=== PATIENT | male | born 2000 | race Caucasian/White ===

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

== ENCOUNTER 2022-09-18 13:11 | Emergency (ER) | payer MEDICAID, SELFPAY ==
[2022-09-18 13:12] VITALS: BP 142/78; PULSE 106; RESP 15; TEMP 37.1; O2SAT 98; BMI 23.8
--- NOTE | 2022-09-18 13:31 | EX.ED.GUMALE ---
HPI History of Present Illness Chief Complaint: Male Pain/Injury Informant: patient Pain Onset: Days (3) Context: Gradual Onset Timing: Continuous Worsened by: Walking Relieved by: Nothing Narrative Narrative: Patient presents with bilateral testicular pain that has been getting worse over the past 3 days. Patient states it is gradually getting worse. Patient describes it as a pressure. Patient states it is worse whenever he walks. Patient states it is worse whenever he touches his testicles. Patient denies any dysuria. Patient states he had some discoloration to his semen recently. Patient denies any fevers or chills. Patient denies any nausea or vomiting. Patient has not had any sexual intercourse recently. PFSH PFSH Medical History no medical history no medical history Home Medications ciprofloxacin HCl 500 mg tablet 500 mg PO BID #14 TABLETS 09/18/22 [Rx Last Taken Unknown] Allergy/AdvReac Type Severity Reaction Status Date / Time No Known Allergies Allergy Verified 09/18/22 13:12 Surgical History no surgical history no surgical history Social History (Updated 09/18/22 @ 13:[address] Shashank Brannon, DO) Smoking Status: Never smoker substance use type: marijuana ROS ROS ED Constitutional Constitutional ED: Denies chills or fever(s) Eyes Eyes: Denies blurry vision or change in vision ENT ENT ED: Reports rhinorrhea; Denies sore throat Cardiovascular Cardiovascular: Denies chest pain or palpitations Respiratory/Chest Respiratory/Chest: Denies cough or dyspnea Gastrointestinal Gastrointestinal: Denies nausea or vomiting Genitourinary Genitourinary ED: Denies dysuria or hematuria Musculoskeletal Musculoskeletal: Denies back pain or neck pain Integumentary Denies abscess or rash Neurologic Neurologic: Denies headache(s) or weakness Allergic/Immunologic Allergic/Immunologic ED: Denies mouth swelling or urticaria EXAM Physical Exam Const Vital Signs: 09/18/22 13:12 Temperature 98.8 F Temperature Source Temporal Pulse Rate 106 H Respiratory Rate 15 Blood Pressure 142/78 H Blood Pressure Mean 99 Pulse Ox 98 Oxygen Delivery Method Room Air Positive well nourished and well developed General Appearance ED: well developed HEENT Reports moist mucous membranes Neck supple and no JVD Resp normal respiratory effort and clear to auscultation bilaterally Cardio regular rate, regular rhythm and no murmurs GI normal to inspection, nondistended, normoactive bowel sounds and non-tender Palpation: soft Narrative: There is mild tenderness over the testicles bilaterally. There is some tenderness over the right epididymis distally. There is no erythema. There is a vertical lie bilaterally. The epididymis is posterior. There is no inguinal tenderness. There are no hernias palpated. There are no external penile lesions noted. There is no urethral discharge or drainage. Groin / Perineum Exam: Negative for edema Extremity normal to inspection General Extremety ED: Negative for edema or tenderness General Extremity: Negative for edema Neuro oriented x3, CN's II-XII intact bilaterally and no sensory deficits noted Sensorium / Orientation: alert Motor Exam: strength 5/5 throughout Psych mental status grossly normal Skin no rashes or lesions noted MDM MDM MDM Narrative Medical decision making narrative: CBC was within normal limits. Basic metabolic profile was essentially within normal limits. Urinalysis shows a leukocyte esterase of 500 with positive nitrites. There were 10-25 white blood cells and 1+ bacteria. Urine culture was ordered. Patient was given a dose of Cipro here. Scrotal ultrasound was obtained. There is no evidence of testicular torsion. There are no masses noted. This was interpreted by the radiologist and reviewed by myself. Patient was advised of his findings. Patient was given a prescription for Cipro. Patient was instructed to follow-up with his primary care physician in 5 to 7 days. Patient understood and was agreeable with the plan. All questions were answered. Lab Data Attestation: I reviewed the patient's lab results. Labs: Laboratory Results - last 24 hr 09/18/22 09/18/22 09/18/22 13:45 13:45 14:10 WBC 6.1 RBC 5.06 Hgb 15.7 Hct 44.9 MCV 88.7 MCH 31.0 MCHC 35.0 RDW Std Deviation 39.9 RDW Coeff of [place]uly 12.3 Plt Count 189 MPV 9.9 Immature Gran % (Auto) 0.300 Neut % (Auto) 72.3 H Lymph % (Auto) 18.6 L [place] % (Auto) 8.0 Eos % (Auto) 0.5 Baso % (Auto) 0.3 Absolute Neuts (auto) 4.4 Absolute Lymphs (auto) 1.14 Nucleated RBC % 0 Sodium 140 Potassium 3.9 Chloride 105 Carbon Dioxide 32.0 Anion Gap 3 L BUN 16 Creatinine 0.93 Estim Creat Clear Calc 126.70 Est GFR (MDRD) Af Amer 132 Est GFR (MDRD) Non-Af 109 BUN/Creatinine Ratio 17.2 Glucose 107 H Calcium 9.3 Urine Color Yellow Urine Clarity Clear Urine pH 7.0 Ur Specific [place] 1.015 Urine Protein 30 H Urine Glucose (UA) Normal Urine Ketones Negative Urine Occult Blood Negative Urine Nitrite Positive H Urine Bilirubin Negative Urine Urobilinogen Normal Ur Leukocyte Esterase 500 H Urine RBC 0 SEEN Urine WBC 10-25 SEEN Ur Squamous Epith Cells 0 SEEN Urine Bacteria 1+ Urine Mucus 1+ Radiography Diagnostic Testing: Clinical Impression(s) from Imaging Studies Testicular Ultrasound 09/18/22 13:36 IMPRESSION: Normal bilateral testicles. Electronically Signed: Cecilio Corona MD at 16:47 EST , Discharge Plan Triage Chief Complaint: Male Pain/Injury ED Provider: Shashank Brannon Dx/Rx/DC Orders Clinical Impression: Urinary tract infection Instructions: ED Bladder Infection, Male (Adult) Prescriptions: New ciprofloxacin HCl [ciprofloxacin HCl] 500 mg tablet 500 mg PO BID Qty: 14 0RF Primary Care Provider: Concha Andrew Referrals: Concha Andrew MD [Primary Care Provider] - 3-5 Days Disposition Disposition: Home, Self Care
--- NOTE | 2022-09-18 13:36 | US_ITS ---
STUDY: SCROTUM ULTRASOUND REASON FOR EXAM: Male, 22 years old. Pain, mass TECHNIQUE: Ultrasound evaluation of the scrotum was performed with color Doppler and static varela-scale imaging. COMPARISON: None. FINDINGS: RIGHT TESTICLE INTRATESTICULAR: There is a normal size of the right testicle. The right testicle measures 4.2 x 2.7 x 1.9 cm. There is a homogenous echotexture. There is normal arterial and normal venous vascularity. There is no demonstrated right testicular mass or cyst. EXTRATESTICULAR: The epididymis is normal in size. The epididymis head measures 0.6 x 1.2 x 0.9 cm. There is normal vascularity of the epididymis. There is no demonstrated epididymal cystic structure. There is a small hydrocele. There is no demonstrated varicocele. There is no demonstrated extratesticular mass or cyst. LEFT TESTICLE INTRATESTICULAR: There is a normal size of the left testicle. The left testicle measures 3.8 x 2.3 x 2.1 cm. There is a homogenous echotexture. There is normal arterial and normal venous vascularity. There is no demonstrated left testicular mass or cyst. EXTRATESTICULAR: The epididymis is normal in size. The epididymis head measures 0.9 x 1.2 x 1.0 cm. There is normal vascularity of the epididymis. There is a well-defined cystic structure within the epididymis, without internal echoes, consistent with an epididymal cyst. There is a small hydrocele. There is no demonstrated varicocele. There is no demonstrated extratesticular mass or cyst. US/Testicular with Arterial Flow IMPRESSION: Normal bilateral testicles. Electronically Signed: Cecilio Corona MD at 16:47 EST ,
[2022-09-18 13:51] LABS: Absolute Lymphocyte Count 1.14 X10^3/uL (0.83-4.51); Absolute Neutrophil Count 4.4 X10^3/uL (2.0-7.7); Basophil# 0.02 X10^3/uL; Basophil% 0.3 % (0-1); Eosinophil# 0.03 X10^3/uL; Eosinophils% 0.5 % (0-5); Hematocrit 44.9 % (40-54); Hemoglobin 15.7 g/dL (13.0-16.5); Lymphocyte # 1.14 X10^3/ul (0.83-4.51); Lymphocyte % 18.6 % (19-41); Mean Corpuscular Volume 88.7 fL (80-94); Mean Platelet Vol. 9.9 fl (6.2-12.0); Monocyte# 0.49 X10^3/uL; NRBC Flagged by Analyzer 0 % (0-5); Neutrophil # 4.44 X10^3/uL (2.7-7.7); Neutrophil % 72.3 % (47-70); Platelet Count 189 K/mm3 (150-450); RBC Distribution Width CV 12.3 % (11.6-14.6); RBC Distribution Width SD 39.9 fl (35.1-43.9); Red Blood Count 5.06 M/mm3 (4.6-6.2); White Blood Count 6.1 K/mm3 (4.4-11.0)
[2022-09-18 14:04] LABS: Anion Gap 3 (5-15); BUN 16 mg/dL (7-18); BUN/Creat Ratio 17.2 RATIO (10-20); Calcium,Total 9.3 mg/dL (8.5-10.1); Chloride 105 mmol/L (98-107); Creatinine, Serum 0.93 mg/dL (0.70-1.30); EST Glomerular Filtration Rate 109 mL/min (>60); Est Glom Filt Rate - Afr Amer 132 mL/min (>60); Glucose 107 mg/dL (74-106); Potassium 3.9 mmol/L (3.5-5.1); Sodium Level 140 mmol/L (136-145)
[2022-09-18 14:17] LABS: Red Blood Cells-Urine 0 SEEN /hpf (0-5); Squamous Epithelial Cells - UA 0 SEEN /hpf (0-5)
[2022-09-18 14:51] LABS: Color, Urine Yellow (Yellow); Glucose, Dipstick Normal (Normal); Ketone-Dipstick Negative (Negative); Leukocyte Esterase-Dipstick 500 /ul (Negative); Nitrite-Dipstick Positive (Negative); Occult Blood-Urine Negative /ul (Negative); Protein-Dipstick 30 mg/dl (Negative); Specific Gravity, Urine 1.015 (1.002-1.030); Urine Bilirubin Dipstick Negative (Negative); Urine Clarity Clear (Clear); Urine Urobilinogen Normal (Normal)
[2022-09-18 14:52] LABS: Bacteria 1+ /hpf (None Seen); Mucous, Urine 1+ /hpf (<or=2+); White Blood Cells 10-25 SEEN /hpf (0-5)
[2022-09-18] MEDS: Ciprofloxacin 500 MG Tablet PO (15:48)
[2022-09-18] MEDS: Azithromycin 250 MG Tablet 1000 MG PO (16:35)
[2022-09-18] MEDS: Ceftriaxone 500 MG Vial 250 MG IM (17:09)
[2022-09-18 18:37] LABS: Chlamydia Trachomatis by PCR Negative (Negative); Neisserai gonorrhoeae by PCR Negative (Negative)
[2022-09-18 18:38] LABS: Probe Check PASS; Sample Adequacy Control PASS; Specimen Processing Control PASS
== END 2022-09-18 17:31 | disposition home or self-care (01) ==
PROVIDERS: Emergency Provider Emergency Medicine; PCP Pediatrics; Visit Provider Emergency Medicine
DX: N39.0 Urinary tract infection, site not specified (principal); N50.811 Right testicular pain; N50.812 Left testicular pain
CPT/HCPCS: 76870; 80048; 81001; 85025; 87491; 87591; 93976; 96372; 99284